=== PATIENT | female | born 1950 | race Caucasian/White ===

== ENCOUNTER 2018-07-09 05:39 | Outpatient (CLI) | payer MEDICARE, OTHER ==
[~2018-07-09] VITALS: Ht 170.2 cm; Wt 103.4 kg
[~2018-07-09 05:39] MED LIST: ALPR0.25 PO; GEMF600T3 PO; HYDR-1231 PO; HYDR-3062 PO; [UNRECOGNIZED DRUG - CODE] PO
[2018-07-09] MEDS ORDERED: SERT25TA5 PO (10:58)
[2018-07-09] MEDS ORDERED: GEMF600T4 PO (10:58)
[2018-07-09] MEDS ORDERED: CHOL500050 PO (10:58)
[2018-07-09] MEDS ORDERED: HYDR-3816 PO (10:58)
== END 2018-07-09 11:07 | disposition home or self-care (01) ==
LOC: PREOP 05:39
PROVIDERS: ATTEND Specialist
DX: Z01.818 Encounter for other preprocedural examination (principal)

== ENCOUNTER 2018-07-13 07:34 | Day surgery (SDC) | payer MEDICARE, OTHER ==
[~2018-07-13] VITALS: Ht 170.2 cm; Wt 103.4 kg
[~2018-07-13 07:34] MED LIST changes: +CHOL500050 PO; +GEMF600T4 PO; +HYDR-3816 PO; +SERT25TA5 PO
[2018-07-13 07:41] VITALS: BP 144/64
[2018-07-13] MEDS ORDERED: POVIDONE (BETADINE) OPHTH SOLN 5% 30 ML OP ONE (07:45)
[2018-07-13] MEDS ORDERED: MOXIFLOXACIN OPHTH SOLN 5 MG/ML 0.3 ML SYRINGE OP ONE (07:45)
[2018-07-13] MEDS ORDERED: LIDOCAINE PF 1% 2 ML AMP IR PRN (07:45)
[2018-07-13] MEDS ORDERED: TIMOLOL MALEATE 0.5% 5 ML (TIMOPTIC) BTL OU PRN (07:45)
[2018-07-13] MEDS: TETRACAINE 0.5% OPHTH SOLN 4 ML BTL (SINGLE DOSE ONLY) OU PRN ×4 (07:53→08:23)
[2018-07-13] MEDS: CYCLOPENTOLATE 1% (CYCLOGYL) 2 ML DROPS OP SCH ×3 (08:02→08:24)
[2018-07-13] MEDS: PHENYLEPHRINE 10% OPHTH (NEO-SYN) 5 ML BTL OU SCH ×3 (08:02→08:24)
[2018-07-13] MEDS ORDERED: MIDAZOLAM 2 MG/2 ML (VERSED) VIAL ONE (08:12)
--- NOTE | 2018-07-13 08:35 | Ophthalmologist Pre-Op Note ---
Pre-Operative Progress Note H&P Reviewed The H&P was reviewed, patient examined and no changes noted. Date H&P Reviewed: Jul 13, 2018 Time H&P Reviewed: 08:35 Pre-Op Dx Cataract, Left Eye GHASSAN REILLY MD Jul 13, 2018 08:35
--- NOTE | 2018-07-13 08:58 | Ophthalmology Operative Report ---
Cataract removal/placement IOL PREOPERATIVE DIAGNOSIS: Cataract Left Eye POSTOPERATIVE DIAGNOSIS: Cataract Left Eye PROCEDURE: Cataract removal and placement of posterior chamber implant, left eye SURGEON: Angus Reilly ANESTHESIA: Topical with sedation COMPLICATIONS: None ESTIMATED BLOOD LOSS: Minimal DESCRIPTION OF PROCEDURE: After proper informed consent was obtained, the patient, a 67 female, was taken to the Operating Room and the left eye was anesthetized with tetracaine. The left eye was then prepped and draped in the usual manner. A wire lid speculum was placed. A paracentesis was made at the left hand position. Preservative free lidocaine was injected into the anterior chamber followed by viscoelastic. A clear corneal incision was made in the temporal position. A capsulorrhexis was preformed and the central nuclear and cortical material were removed. The posterior capsule was polished and an Boo 14.0 AU00T0 was placed into the capsular bag. The residual viscoelastic was aspirated and balanced saline solution was injected into the anterior chamber. Moxifloxacin was injected into the anterior chamber. The wound was checked and found to be water tight. The patient tolerated the procedure well without complications. ANGUS REILLY MD Jul 13, 2018 08:58
[2018-07-13] MEDS ORDERED: acetaZOLAMIDE ER 500 MG CAP (DIAMOX SEQUELS) PO ONE (09:00)
[2018-07-13 09:04] VITALS: BP 130/73
--- NOTE | 2018-07-13 11:13 | Anesthesia-General Post-Op ---
MAC Patient Condition Mental Status/LOC: Same as Preop Cardiovascular: Satisfactory Nausea/Vomiting: Absent Respiratory: Satisfactory Pain: Controlled Complications: Absent Post Op Complications Complications None Follow Up Care/Instructions Patient Instructions None needed. Anesthesiology Discharge Order Discharge Order Patient is doing well, no complaints, stable vital signs, no apparent adverse anesthesia problems. No complications reported per nursing. ALECIA LINK CRNA Jul 13, 2018 11:13
== END 2018-07-13 09:04 | disposition home or self-care (01) ==
LOC: SDC 07:34
PROVIDERS: ATTEND Specialist
DX: H25.12 Age-related nuclear cataract, left eye (principal); F32.9 Major depressive disorder, single episode, unspecified; Z79.899 Other long term (current) drug therapy

== ENCOUNTER 2018-07-24 05:48 | Outpatient (CLI) | payer MEDICARE, OTHER ==
[~2018-07-24] VITALS: Ht 170.2 cm; Wt 103.4 kg
== END 2018-07-24 11:03 | disposition home or self-care (01) ==
LOC: PREOP 05:48
PROVIDERS: ATTEND Specialist
DX: Z01.818 Encounter for other preprocedural examination (principal)

== ENCOUNTER 2018-07-27 07:23 | Day surgery (SDC) | payer MEDICARE, OTHER ==
[~2018-07-27] VITALS: Ht 170.2 cm; Wt 103.4 kg
[~2018-07-27 07:23] MED LIST changes: -GEMF600T4 PO; +GEMF600T8 PO
[2018-07-27] MEDS ORDERED: MOXIFLOXACIN OPHTH SOLN 5 MG/ML 0.3 ML SYRINGE OP ONE (07:30)
[2018-07-27] MEDS ORDERED: POVIDONE (BETADINE) OPHTH SOLN 5% 30 ML OP ONE (07:30)
[2018-07-27] MEDS ORDERED: TIMOLOL MALEATE 0.5% 5 ML (TIMOPTIC) BTL OU PRN (07:30)
[2018-07-27] MEDS ORDERED: LIDOCAINE PF 1% 2 ML AMP IR PRN (07:30)
[2018-07-27 07:34] VITALS: BP 136/68
[2018-07-27] MEDS: TETRACAINE 0.5% OPHTH SOLN 4 ML BTL (SINGLE DOSE ONLY) OU PRN ×4 (07:37→08:12)
[2018-07-27] MEDS: CYCLOPENTOLATE 1% (CYCLOGYL) 2 ML DROPS OP SCH ×3 (07:47→08:12)
[2018-07-27] MEDS: PHENYLEPHRINE 10% OPHTH (NEO-SYN) 5 ML BTL OU SCH ×3 (07:47→08:12)
[2018-07-27] MEDS ORDERED: MIDAZOLAM 2 MG/2 ML (VERSED) VIAL ONE (08:13)
--- NOTE | 2018-07-27 08:26 | Ophthalmologist Pre-Op Note ---
Pre-Operative Progress Note H&P Reviewed The H&P was reviewed, patient examined and no changes noted. Date H&P Reviewed: Jul 27, 2018 Time H&P Reviewed: 08:25 Pre-Op Dx Cataract, Right Eye GHASSAN REILLY MD Jul 27, 2018 08:26
--- NOTE | 2018-07-27 08:48 | Ophthalmology Operative Report ---
Cataract removal/placement IOL PREOPERATIVE DIAGNOSIS: Cataract Right Eye POSTOPERATIVE DIAGNOSIS: Cataract Right Eye PROCEDURE: Cataract removal and placement of posterior chamber implant, right eye SURGEON: Angus Reilly ANESTHESIA: Topical with sedation COMPLICATIONS: None ESTIMATED BLOOD LOSS: Minimal DESCRIPTION OF PROCEDURE: After proper informed consent was obtained, the patient, a 67 female, was taken to the Operating Room and the right eye was anesthetized with tetracaine. The right eye was then prepped and draped in the usual manner. A wire lid speculum was placed. A paracentesis was made at the left hand position. Preservative free lidocaine was injected into the anterior chamber followed by viscoelastic. A clear corneal incision was made in the temporal position. A capsulorrhexis was preformed and the central nuclear and cortical material were removed. The posterior capsule was polished and Boo AU00T0 13.0 IOL was placed into the capsular bag. The residual viscoelastic was aspirated and balanced saline solution was injected into the anterior chamber. Moxifloxacin was injected into the anterior chamber. The wound was checked and found to be water tight. The patient tolerated the procedure well without complications. ANGUS REILLY MD Jul 27, 2018 08:48
[2018-07-27 08:53] VITALS: BP 137/75
[2018-07-27] MEDS ORDERED: acetaZOLAMIDE ER 500 MG CAP (DIAMOX SEQUELS) PO ONE (09:00)
--- NOTE | 2018-07-27 12:39 | Anesthesia-General Post-Op ---
MAC Patient Condition Mental Status/LOC: Same as Preop Cardiovascular: Satisfactory Nausea/Vomiting: Absent Respiratory: Satisfactory Pain: Controlled Complications: Absent Post Op Complications Complications None Follow Up Care/Instructions Patient Instructions None needed. Anesthesiology Discharge Order Discharge Order Patient is doing well, no complaints, stable vital signs, no apparent adverse anesthesia problems. No complications reported per nursing. GIANCARLO JOLLY CRNA Jul 27, 2018 12:39
== END 2018-07-27 08:56 | disposition home or self-care (01) ==
LOC: SDC 07:23
PROVIDERS: ATTEND Specialist
DX: H25.11 Age-related nuclear cataract, right eye (principal); F32.9 Major depressive disorder, single episode, unspecified; Z79.899 Other long term (current) drug therapy

== ENCOUNTER → 2018-08-27 | Outpatient (RCR) | payer MEDICARE, OTHER | END | disposition home or self-care (01) | PROVIDERS: ATTEND Orthopaedic Surgery | DX: Z47.89 Encounter for other orthopedic aftercare (principal); M25.511 Pain in right shoulder ==

== ENCOUNTER 2018-11-26 08:50 | Outpatient (RCR) | payer MEDICARE, OTHER | END 2018-11-27 | disposition home or self-care (01) | PROVIDERS: ATTEND Orthopaedic Surgery | DX: Z47.89 Encounter for other orthopedic aftercare (principal); M25.511 Pain in right shoulder ==

== ENCOUNTER 2018-12-06 13:30 | Outpatient (RCR) | payer MEDICARE, OTHER | END 2018-12-07 13:47 | disposition home or self-care (01) | PROVIDERS: ATTEND Orthopaedic Surgery | DX: Z47.89 Encounter for other orthopedic aftercare (principal); M25.511 Pain in right shoulder ==

== ENCOUNTER → 2019-02-19 | Outpatient (CLI) | payer MEDICARE, OTHER ==
--- NOTE | 2019-02-19 12:54 | Diagnostic Imaging Report ---
PROCEDURE: US Thyroid. TECHNIQUE: Multiple real-time grayscale images were obtained of the thyroid in various projections. INDICATION: Enlarged thyroid gland. COMPARISON: None available. FINDINGS: The right lobe of thyroid gland is slightly small measuring 3.9 x 1.4 x 1.3 cm. It maintains a homogeneous echotexture without discrete nodule. The left lobe of thyroid gland is mildly small measuring 3.1 x 1.2 x 0.8 cm. It maintains a homogeneous echotexture without discrete nodule. Isthmus is unremarkable. IMPRESSION: Mildly small thyroid gland. Otherwise, unremarkable examination without discrete nodule. Dictated by: Dictated on workstation # [id number]
== END ==
LOC: RAD 10:29
PROVIDERS: ATTEND Nurse Practitioner Family
DX: Z12.31 Encounter for screening mammogram for malignant neoplasm of breast (principal); E04.9 Nontoxic goiter, unspecified
CPT/HCPCS: 76536; 77067

== ENCOUNTER → 2019-05-14 | Outpatient (CLI) | payer MEDICARE, OTHER ==
--- NOTE | 2019-05-14 13:43 | Diagnostic Imaging Report ---
INDICATION: Knee pain. Three views were obtained. FINDINGS: There is three-compartment osteoarthritic change. There is no fracture or dislocation. Soft tissues are unremarkable. IMPRESSION: Three-compartment osteoarthritic change. Dictated by: Dictated on workstation # [id number]
== END ==
LOC: RAD 13:21
PROVIDERS: ATTEND Nurse Practitioner Family
DX: M17.11 Unilateral primary osteoarthritis, right knee (principal)
CPT/HCPCS: 73562

== ENCOUNTER → 2019-05-20 | Outpatient (CLI) | payer MEDICARE, OTHER ==
--- NOTE | 2019-05-20 13:41 | Diagnostic Imaging Report ---
INDICATION: History of kidney stones. COMPARISON: None. FINDINGS: Two supine radiographic views of the abdomen were obtained. Small bowel loops are nondistended. There is small extraosseous calcification within the left upper abdominal quadrant that measures approximately 4 mm. It is unclear if this is within the inferior pole of the left kidney or related to superimposed debris within the colon. No unexpected radiopaque foreign bodies are identified. There is no large collection of free intraperitoneal air. Included portions of the lung bases are clear. Osseous structures show no acute abnormalities. IMPRESSION: 1. Small calculus within the left upper abdominal quadrant, which again could be on the basis of nephrolithiasis versus debris within the colon projecting over the left kidney. 2. Nonobstructive small bowel gas pattern. Dictated by: Dictated on workstation # [id number]
== END ==
LOC: RAD 12:48
PROVIDERS: ATTEND Urology
DX: N20.1 Calculus of ureter (principal); R19.8 Other specified symptoms and signs involving the digestive system and abdomen; Z87.442 Personal history of urinary calculi
CPT/HCPCS: 74018

== ENCOUNTER → 2019-05-23 | Outpatient (CLI) | payer MEDICARE, OTHER ==
--- NOTE | 2019-05-23 13:16 | Diagnostic Imaging Report ---
PROCEDURE: CT abdomen and pelvis without contrast. TECHNIQUE: Multiple contiguous axial images were obtained through the abdomen and pelvis without the use of intravenous contrast. Auto Exposure Controls were utilized during the CT exam to meet ALARA standards for radiation dose reduction. INDICATION: Left-sided pain. Patient reportedly has a left ureteral stone. FINDINGS: Lung bases are clear apart from minimal linear density in the left base consistent with atelectasis. There is a calcified granuloma in the medial right lower lobe. No discrete liver mass is identified. There are small stones layering within the dependent portion of the gallbladder. No biliary ductal dilatation is identified. The pancreas is unremarkable. The spleen is unremarkable. No adrenal mass is detected. The right kidney is unremarkable. The left kidney does contain a tiny approximately 2 mm nonobstructing calculus in the lower pole. No ureteral calculi are identified. There is no hydronephrosis. Urinary bladder is decompressed but no definite bladder calculi are detected. The aorta does show some atherosclerotic calcifications but is non-aneurysmal. No central, retroperitoneal, or mesenteric lymphadenopathy is identified. The large and small bowel loops are normal caliber. There is diverticulosis throughout the sigmoid colon but no evidence of acute diverticulitis. No definite iliac or inguinal lymphadenopathy is detected. No free fluid or fluid collection is seen. Bony structures are nonacute. There is multilevel degenerative disc disease. IMPRESSION: 1. Cholelithiasis. 2. Nonobstructing left renal calculus. 3. Uncomplicated sigmoid diverticulosis. 4. No acute feature in the abdomen or pelvis is identified. Dictated by: Dictated on workstation # [id number]
== END ==
LOC: RAD 12:32
PROVIDERS: ATTEND Urology
DX: N20.2 Calculus of kidney with calculus of ureter (principal); K80.20 Calculus of gallbladder without cholecystitis without obstruction; K57.30 Diverticulosis of large intestine without perforation or abscess without bleeding
CPT/HCPCS: 74176

== ENCOUNTER → 2019-05-24 | Outpatient (CLI) | payer MEDICARE, OTHER ==
--- NOTE | 2019-05-24 12:50 | Diagnostic Imaging Report ---
PROCEDURE: MRI right joint lower extremity without contrast. TECHNIQUE: Multiplanar, multisequence non contrast-enhanced MRI of the right lower extremity was accomplished. INDICATION: Pain in the right knee after feeling a pop. COMPARISON: Radiographs from 05/14/2019. FINDINGS: No acute fracture is seen in the right knee. Alignment appears normal. There are moderate-sized marginal osteophytes in all three compartments. There is a small right knee joint effusion. The articular cartilage in the patellofemoral compartment demonstrates moderate thinning and surface irregularity. The articular cartilage in the medial compartment demonstrates moderate thinning and surface irregularity, with areas of near full-thickness cartilage loss. The articular cartilage in the lateral compartment demonstrates no full-thickness defects. There is a complex tear of the medial meniscus with horizontal and radial components at the posterior horn extending to the body. The lateral meniscus appears intact. The anterior and posterior cruciate ligaments are intact. The medial collateral ligament is bowed due to the partially extruded meniscus, but otherwise appears intact. The lateral collateral ligamentous complex is intact. The extensor mechanism is intact. The medial and lateral retinacula are intact. Soft tissues about the knee are otherwise unremarkable. IMPRESSION: 1. Complex tear of the medial meniscus in the right knee. 2. Tricompartmental degenerative change and cartilage loss, most notable at the medial compartment. 3. Small right knee joint effusion. Dictated by: Dictated on workstation # [id number]
== END ==
LOC: RAD 09:56
PROVIDERS: ATTEND Nurse Practitioner Family
DX: S83.231A Complex tear of medial meniscus, current injury, right knee, initial encounter (principal); M17.11 Unilateral primary osteoarthritis, right knee; M25.461 Effusion, right knee
CPT/HCPCS: 73721

== ENCOUNTER 2019-06-04 09:49 | Outpatient (RCR) | payer MEDICARE, OTHER | END 2019-06-12 | disposition home or self-care (01) | PROVIDERS: ATTEND Nurse Practitioner | DX: M25.511 Pain in right shoulder (principal); Z98.890 Other specified postprocedural states ==

== ENCOUNTER → 2021-01-08 | Outpatient (CLI) | payer MEDICARE, OTHER ==
[~2021-01-08] MED LIST changes: -GEMF600T8 PO; +GEMF600T88 PO; +HYDR-34 PO; -HYDR-3816 PO; +SERT-412 PO; -SERT25TA5 PO
--- NOTE | 2021-01-08 10:44 | Diagnostic Imaging Report ---
PROCEDURE: US Gallbladder. TECHNIQUE: Multiple real-time grayscale images were obtained over the right upper quadrant in various projections. INDICATION: Right upper quadrant abdominal pain COMPARISON: None FINDINGS: There is fatty infiltration throughout the liver. No mass or intrahepatic biliary duct dilatation is seen. Common bile duct is nonvisualized as is the pancreas. Portal venous flow is normal. The gallbladder wall appears normal. Cholelithiasis is present without cholecystitis. The IVC, aorta and right kidney are normal. There is no ascites. IMPRESSION: 1. Cholelithiasis without cholecystitis 2. Fatty liver 3. No ascites Dictated by: Dictated on workstation # [id number]
== END ==
LOC: RAD 09:45
PROVIDERS: ATTEND Nurse Practitioner Family
DX: K80.20 Calculus of gallbladder without cholecystitis without obstruction (principal); K76.0 Fatty (change of) liver, not elsewhere classified
CPT/HCPCS: 76705

== ENCOUNTER → 2021-10-07 | Outpatient (CLI) | payer MEDICARE, OTHER ==
[~2021-10-07] VITALS: Ht 170.2 cm; Wt 111.8 kg
[~2021-10-07] MED LIST changes: +PANT40TA52 PO
== END | disposition home or self-care (01) ==
LOC: PREOP 08:09
PROVIDERS: ATTEND Specialist
DX: Z01.818 Encounter for other preprocedural examination (principal)

== ENCOUNTER → 2021-12-09 | Outpatient (CLI) | payer MEDICARE, OTHER ==
--- NOTE | 2021-12-09 09:51 | Diagnostic Imaging Report ---
PROCEDURE: US Gallbladder. TECHNIQUE: Multiple real-time grayscale images were obtained over the right upper quadrant in various projections. INDICATION: Right upper quadrant pain. Liver is upper limits of normal in size at 18 cm. There is some generalized increased echogenicity throughout the liver consistent with hepatic steatosis. No discrete liver mass is identified. Portal vein is patent and shows normal direction of flow. Gallbladder is without stones or sludge. No wall thickening or biliary duct dilatation is seen. Visualized pancreas is unremarkable although pancreatic tail is obscured by bowel gas. Aorta is nonaneurysmal. IVC is patent. Right kidney is without calculi or hydronephrosis. There is no ascites. IMPRESSION: 1. Hepatic steatosis. 2. No evidence of cholelithiasis or acute cholecystitis. Dictated by: Dictated on workstation # [id number]
== END ==
LOC: RAD 08:30
PROVIDERS: ATTEND Nurse Practitioner Family
DX: K80.20 Calculus of gallbladder without cholecystitis without obstruction (principal); K76.0 Fatty (change of) liver, not elsewhere classified
CPT/HCPCS: 76705

== ENCOUNTER 2022-02-02 10:27 | Outpatient (RCR) | payer MEDICARE, OTHER | END 2022-02-06 | disposition home or self-care (01) | PROVIDERS: ATTEND Physician Assistant | DX: M25.511 Pain in right shoulder (principal); Z96.611 Presence of right artificial shoulder joint ==

== ENCOUNTER → 2022-02-10 | Outpatient (CLI) | payer MEDICARE, OTHER ==
[~2022-02-10] MED LIST changes: +CATHETER FLUSH 10 ML SYR IVP PRN
--- NOTE | 2022-02-10 13:46 | Diagnostic Imaging Report ---
INDICATION: Right upper quadrant pain. EXAMINATION: Hepatobiliary scan from 02/10/2022. FINDINGS: After uneventful administration of 5.1 mCi of technetium Choletec intravenously subsequent imaging is performed with prompt homogeneous uptake seen throughout the liver. The gallbladder and small bowel seen within 60 minutes. Ensure administered orally at 60 minutes with continued imaging performed. Ejection fraction calculated at 28.4% IMPRESSION: 1. No obstructive process. 2. Low ejection fraction suggestive of chronic cholecystitis versus gallbladder dyskinesia. Correlate with patient's symptoms. Dictated by: Dictated on workstation # [id number]
== END ==
LOC: CARD 09:28
PROVIDERS: ATTEND Nurse Practitioner Family
DX: R10.11 Right upper quadrant pain (principal)
CPT/HCPCS: 78227; A9537

== ENCOUNTER 2022-03-08 10:49 | Outpatient (RCR) | payer MEDICARE, OTHER ==
[~2022-03-08 10:49] MED LIST changes: -CATHETER FLUSH 10 ML SYR IVP PRN
== END 2022-03-09 | disposition home or self-care (01) ==
PROVIDERS: ATTEND Physician Assistant
DX: M25.511 Pain in right shoulder (principal); Z96.611 Presence of right artificial shoulder joint

== ENCOUNTER 2022-03-31 10:44 | Outpatient (RCR) | payer MEDICARE, OTHER | END 2022-04-08 | disposition home or self-care (01) | PROVIDERS: ATTEND Physician Assistant | DX: M25.511 Pain in right shoulder (principal); Z96.611 Presence of right artificial shoulder joint ==

== ENCOUNTER 2022-04-11 09:42 | Emergency (ER) | payer MEDICARE, OTHER ==
[~2022-04-11] VITALS: Ht 170 cm; Wt 103.3 kg
[2022-04-11 09:48] VITALS: BP_DIAS 72
[2022-04-11 10:09] LABS: BASOPHILS # (AUTO) 0.1 10^3/uL (0.0-0.1); BASOPHILS % (AUTO) 1 % (0-10); EOSINOPHILS # (AUTO) 0.2 10^3/uL (0.0-0.3); EOSINOPHILS % (AUTO) 2 % (0-10); HEMATOCRIT 46 % (35-52); LYMPHOCYTES # (AUTO) 2.8 10^3/uL (1.0-4.0); LYMPHOCYTES % (AUTO) 28 % (12-44); MEAN CORPUSCULAR HEMOGLOBIN 29 pg (25-34); MEAN CORPUSCULAR HGB CONC 33 g/dL (32-36); MEAN CORPUSCULAR VOLUME 89 fL (80-99); MEAN PLATELET VOLUME 10.8 fL (9.0-12.2); MONOCYTES # (AUTO) 0.6 10^3/uL (0.0-1.0); MONOCYTES % (AUTO) 6 % (0-12); NEUTROPHILS # (AUTO) 6.3 10^3/uL (1.8-7.8); NEUTROPHILS % (AUTO) 64 % (42-75); PLATELET COUNT 278 10^3/uL (130-400)
--- NOTE | 2022-04-11 10:11 | ED Abdominal Pain ---
General Chief Complaint: Abdominal/GI Problems Stated Complaint: ABD PAIN Nursing Triage Note: pt presents to ed via pov from home with complaints of r upper abdominal pain starting around 0920 after voiding. pt reports she has gallbladder sx on 04/06/22 Source of Information: Patient Exam Limitations: No Limitations History of Present Illness Date Seen by Provider: Apr 11, 2022 Time Seen by Provider: 09:46 Initial Comments Patient to the ER by private conveyance with her daughter and chief complaint of right upper quadrant pain severely worsening this morning about an hour prior to arrival. She took a tablet of hydrocodone 5 and did not feel like it helped at all. She is not really having any nausea. She had a cholecystectomy on Monday by Dr. Crockett at [facility], 5 days ago. She has a history of hysterectomy. She is passing gas and bowel movements normally. She has been eating and drinking normally. She denies dysuria or diarrhea. She states that everything was getting better up until this morning. She was even weaning off of the pain medication. She says the last time she had up for that was at 2300 yesterday. Allergies and Home Medications Allergies Coded Allergies: eucalyptus (Verified Allergy, Intermediate, Shortness of Breath, 10/15/21) hazelnut (Verified Allergy, Intermediate, Itching, 10/15/21) latex (Verified Allergy, Unknown, RASH, 10/15/21) Penicillins (Verified Adverse Reaction, Intermediate, 10/15/21) nickel (Verified Adverse Reaction, Intermediate, Itching, 10/15/21) carbamazepine (Verified Adverse Reaction, Unknown, 10/15/21) codeine (Verified Adverse Reaction, Unknown, 10/15/21) cyclobenzaprine (Verified Adverse Reaction, Unknown, 10/15/21) doxycycline (Verified Adverse Reaction, Unknown, 10/15/21) erythromycin base (Verified Adverse Reaction, Unknown, 10/15/21) flurbiprofen (Verified Adverse Reaction, Unknown, 10/15/21) lincomycin (Verified Adverse Reaction, Unknown, 10/15/21) phenytoin (Verified Adverse Reaction, Unknown, 10/15/21) Uncoded Allergies: BEE STINGS (Adverse Reaction, Unknown, 07/09/18) Patient Home Medication List Home Medication List Reviewed: Yes Cholecalciferol (Vitamin D3) (Vitamin D) 5,000 Unit Capsule, 5,000 UNIT PO DAILY, (Reported) Entered as Reported by: DELON GARCIA on 07/09/18 1058 Gemfibrozil (Gemfibrozil) 600 Mg Tablet, 600 MG PO BID, (Reported) Entered as Reported by: DELON GARCIA on 07/09/18 1058 Pantoprazole Sodium (Pantoprazole Sodium) 40 Mg Tablet.dr, 40 MG PO DAILY, (R eported) Entered as Reported by: VANDA MOORE on 10/07/21 1333 Sertraline HCl (Sertraline HCl) 25 Mg Tablet, 25 MG PO DAILY, (Reported) Entered as Reported by: DELON GARCIA on 07/09/18 1058 Review of Systems Review of Systems Constitutional: No chills, No fever EENTM: No Blurred Vision, No Double Vision Respiratory: Denies Cough, Denies Shortness of Air Cardiovascular: Denies Chest Pain, Denies Lightheadedness Gastrointestinal: See HPI, Abdominal Pain; Denies Constipated, Denies Diarrhea, Denies Nausea, Denies Poor Fluid Intake Genitourinary: Denies Burning, Denies Discharge All Other Systems Reviewed Negative Unless Noted: Yes Past Whtjixi-Ajkbsn-Lrzsem Hx Patient Social History Tobacco Use?: No Substance use?: No Alcohol Use?: No Pt feels they are or have been: No Immunizations Up To Date First/Initial COVID19 Vaccinat: yes Second COVID19 Vaccination Fabio: yes Past Medical History Surgery/Hospitalization HX: pmh: seasonal allergies, depression, gerd PIPE WELDER History: Menopausal Kidney Stones Arthritis Physical Exam Vital Signs Vital Signs - First Documented 04/11/22 09:48 Temp 36.5 Pulse 77 Resp 18 B/P (MAP) 203/72 (115) Pulse Ox 95 Capillary Refill : Less Than 3 Seconds Height/Weight/BMI Height: 5'7.00" Weight: 228lbs. 0.0oz. 103.927730fi; 35.00 BMI Method:Stated General Appearance: WD/WN, mild distress HEENT: PERRL/EOMI, pharynx normal Neck: full range of motion, normal inspection Respiratory: lungs clear, normal breath sounds, no respiratory distress, no accessory muscle use Cardiovascular: normal peripheral pulses, regular rate, rhythm Peripheral Pulses: 2+ Radial Pulses (R), 2+ Radial Pulses (L) Gastrointestinal: normal bowel sounds (Quiescent bowel sounds), soft, tenderness (Right upper quadrant and left upper quadrant tenderness to palpation. Negative for McBurney's point tenderness or Rovsing sign.) Extremities: normal range of motion, normal capillary refill Neurologic/Psychiatric: alert, normal mood/affect, oriented x 3 Skin: normal color, warm/dry Progress/Results/Core Measures Results/Orders Lab Results Laboratory Tests Test 04/11/22 10:05 04/11/22 10:33 04/11/22 11:30 Range/Units White Blood Count 10.0 4.3-11.0 10^3/uL Red Blood Count 5.14 H 3.80-5.11 10^6/uL Hemoglobin 15.0 11.5-16.0 g/dL Hematocrit 46 35-52 % Mean Corpuscular Volume 89 80-99 fL Mean Corpuscular Hemoglobin 29 25-34 pg Mean Corpuscular Hemoglobin Concent 33 32-36 g/dL Red Cell Distribution Width 14.1 10.0-14.5 % Platelet Count 278 130-400 10^3/uL Mean Platelet Volume 10.8 9.0-12.2 fL Immature Granulocyte % (Auto) 0 % Neutrophils (%) (Auto) 64 42-75 % Lymphocytes (%) (Auto) 28 12-44 % Monocytes (%) (Auto) 6 0-12 % Eosinophils (%) (Auto) 2 0-10 % Basophils (%) (Auto) 1 0-10 % Neutrophils # (Auto) 6.3 1.8-7.8 10^3/uL Lymphocytes # (Auto) 2.8 1.0-4.0 10^3/uL Monocytes # (Auto) 0.6 0.0-1.0 10^3/uL Eosinophils # (Auto) 0.2 0.0-0.3 10^3/uL Basophils # (Auto) 0.1 0.0-0.1 10^3/uL Immature Granulocyte # (Auto) 0.0 0.0-0.1 10^3/uL Sodium Level 138 135-145 MMOL/L Potassium Level 3.3 L 3.6-5.0 MMOL/L Chloride Level 103 98-107 MMOL/L Carbon Dioxide Level 25 21-32 MMOL/L Anion Gap 10 5-14 MMOL/L Blood Urea Nitrogen 12 7-18 MG/DL Creatinine 0.75 0.60-1.30 MG/DL Estimat Glomerular Filtration Rate 85 BUN/Creatinine Ratio 16 Glucose Level 122 H 70-105 MG/DL Calcium Level 9.2 8.5-10.1 MG/DL Corrected Calcium 9.1 8.5-10.1 MG/DL Total Bilirubin 0.8 0.1-1.0 MG/DL Aspartate Amino Transf (AST/SGOT) 42 H 5-34 U/L Alanine Aminotransferase (ALT/SGPT) 38 0-55 U/L Alkaline Phosphatase 109 40-136 U/L C-Reactive Protein High Sensitivity 5.42 H 0.00-0.50 MG/DL Total Protein 7.3 6.4-8.2 GM/DL Albumin 4.1 3.2-4.5 GM/DL Lipase 18 8-78 U/L Urine Color YELLOW Urine Clarity CLEAR Urine pH 7.0 5-9 Urine Specific [place] 1.010 L 1.016-1.022 Urine Protein NEGATIVE NEGATIVE Urine Glucose (UA) NEGATIVE NEGATIVE Urine Ketones NEGATIVE NEGATIVE Urine Nitrite NEGATIVE NEGATIVE Urine Bilirubin NEGATIVE NEGATIVE Urine Urobilinogen 0.2 < = 1.0 MG/DL Urine Leukocyte Esterase NEGATIVE NEGATIVE Urine RBC (Auto) NEGATIVE NEGATIVE Urine RBC NONE /HPF Urine WBC RARE /HPF Urine Crystals NONE /LPF Urine Bacteria NEGATIVE /HPF Urine Casts NONE /LPF Urine Mucus NEGATIVE /LPF Urine Culture Indicated NO My Orders Orders - RICHARD JOHNSON Cbc With Automated Diff (04/11/22 09:56) Comprehensive Metabolic Panel (04/11/22 09:56) Lipase (04/11/22 09:56) Ua Culture If Indicated (04/11/22 09:56) Fentanyl Inj (Sublimaze Injection) (04/11/22 10:15) Ed Iv/Invasive Line Start (04/11/22 10:05) Ns Iv 1000 Ml (Sodium Chloride 0.9%) (04/11/22 10:15) Ct Abdomen/Pelvis W (04/11/22 10:05) Pantoprazole Injection (Protonix Injecti (04/11/22 10:15) Hs C Reactive Protein (04/11/22 10:05) Iohexol Injection (Omnipaque 350 Mg/Ml 1 (04/11/22 11:00) Received Contrast (Hold Metformin- Contr (04/11/22 11:00) Ns (Ivpb) (Sodium Chloride 0.9% Ivpb Bag (04/11/22 11:00) Sodium Chloride Flush (Catheter Flush Sy (04/11/22 11:00) Medications Given in ED Current Medications Medications Dose Ordered Sig/Jennifer Route Start Time Stop Time Status Last Admin Dose Admin Fentanyl Citrate 50 mcg ONCE ONCE IVP 04/11/22 10:15 04/11/22 10:16 DC 04/11/22 10:27 50 MCG Iohexol 100 ml ONCE ONCE IV 04/11/22 11:00 04/11/22 11:05 DC 04/11/22 11:06 80 ML Pantoprazole 40 mg ONCE ONCE IV 04/11/22 10:15 04/11/22 10:16 DC 04/11/22 10:27 40 MG Sodium Chloride 10 ml NEEDED PRN IV 04/11/22 11:00 04/11/22 11:06 10 ML Sodium Chloride 100 ml ONCE ONCE IV 04/11/22 11:00 04/11/22 11:05 DC 04/11/22 11:06 80 ML Vital Signs/I&O 04/11/22 09:48 Temp 36.5 Pulse 77 Resp 18 B/P (MAP) 203/72 (115) Pulse Ox 95 Blood Pressure Mean: 115 Progress Progress Note #1: Time: 10:10 Progress Note 50 mcg of IV fentanyl for her pain. A liter of fluids had a CT with IV contrast. Labs including a lipase, urinalysis. Differential includes biliary leak, gastritis, urinary tract infection, other surgical complications etc. Progress Note #2: Time: 11:45 Progress Note Patient's pain is still under control. She still not having any nausea. We discussed the case with Dr. Crockett the general surgeon and he is okay to follow her up in the clinic tomorrow morning. We will have the daughter call for an appointment. We will make sure she has appropriate pain medicines and nausea medicines and return precautions. The patient is okay with this plan. Her vital signs are still aseptic. She has had no material deterioration during her ER stay. Diagnostic Imaging Diagonstic Imaging: CT Plain Films/CT/US/NM/MRI: abdomen, pelvis Comments NAME: [facility] REC#: [id number] PT STATUS: REG ER : 1950 PHYSICIAN: RICHARD JOHNSON MD ADMIT DATE: 04/11/22/ER Draft Date of Exam:04/11/22 CT ABDOMEN/PELVIS W CT ABDOMEN/PELVIS W TECHNIQUE: Multiple contiguous axial images were obtained through the abdomen and pelvis after administration of intravenous contrast. All CT scans use one or more of the following dose optimizing techniques: automated exposure control, MA and/or KvP adjustment based on patient size and exam type or iterative reconstruction. INDICATION: Abdominal pain. Recent cholecystectomy. COMPARISON: None available. FINDINGS: Lower chest: Linear atelectasis within the left lung base. There are few calcified granulomas within the medial aspect of the right lower lobe. Peritoneum: Trace nonloculated fluid in the right paracolic gutter and gallbladder fossa. No loculated fluid collection that would indicate abscess or biloma. Liver and biliary system: Diffuse hypoattenuation of the liver is likely due to steatosis. No focal hepatic lesion. The portal vein is patent. Cholecystectomy. Spleen and Pancreas: Spleen is normal. The pancreas enhances normally without mass lesion or peripancreatic inflammatory changes. Adrenals: Normal. tract: The kidneys enhance normally without suspicious mass or obstruction. Urinary bladder is distended without wall thickening. Hysterectomy. No adnexal mass. GI tract: Stomach is decompressed. No bowel obstruction. Descending and sigmoid colon diverticulosis without diverticulitis. Normal appendix. Vasculature and Lymph nodes: Normal caliber aorta. No abdominal or pelvic lymphadenopathy. Musculoskeletal: No concerning osseous lesion. IMPRESSION: 1. Status post cholecystectomy with a small amount of free fluid in the gallbladder fossa which is within expected limits for recent surgery. No loculated fluid collection to indicate biloma or abscess. 2. Normal appendix. 3. Colonic diverticulosis without diverticulitis. Dictated on workstation # [id number] Dict: 04/11/22 1128 Trans: 04/11/22 1138 [id number] Interpreted by: BIPIN KIM MD Electronically signed by: Reviewed: Reviewed by Me Departure Impression Primary Impression: Abdominal pain Qualified Codes: R10.11 - Right upper quadrant pain Additional Impression: Status post cholecystectomy Disposition: 01 HOME, SELF-CARE Condition: Stable Departure-Patient Inst. Decision time for Depature: 11:57 Referrals: ELIZA BOLANOS MD (PCP/Family) Primary Care Physician Patient Instructions: Cholecystectomy, Laparoscopic Surgery Add. Discharge Instructions: We could not find a dangerous explanation for your pain today. I suggest you treat the pain and follow-up with Dr. Crockett in the morning by calling for an appointment. Dr. Crockett's office is [phone]. Take 1 tablet of hydrocodone every 6 hours if you are having severe pain. If you are still having significant pain 30 minutes later then take a second tablet every 6 hours as needed. Ondansetron 1 tablet under the tongue every 6 hours as needed for nausea or vomiting. Stick to a liquid diet and avoid greasy spicy foods. Return to the ER promptly if you are having intractable vomiting, fever above 102.5, pain that is so severe that you cannot function despite pain medicines. All discharge instructions reviewed with patient and/or family. Voiced u nderstanding. Scripts Ondansetron (Ondansetron Odt) 4 Mg Tab.rapdis 4 MG PO Q6H PRN for NAUSEA/VOMITING, #8 TAB 0 Refills Prov: RICHARD JOHNSON 04/11/22 Hydrocodone/Acetaminophen (Hydrocodone-Acetamin 5-325 mg) 5 Mg-325 Mg Tablet 1-2 TAB PO Q6H PRN for PAIN-MODERATE (5-7), #12 TAB 0 Refills Prov: RICHARD JOHNSON 04/11/22 RICHARD JOHNSON Apr 11, 2022 10:11
[2022-04-11] MEDS ORDERED: fentaNYL INJ 100 MCG/2 ML AMP IVP ONE (10:15)
[2022-04-11] MEDS ORDERED: NS IV 1000 ML 1,000 ML IV SCH (10:15)
[2022-04-11] MEDS ORDERED: PANTOPRAZOLE 40 MG (PROTONIX) VIAL IV ONE (10:15)
[2022-04-11 10:48] LABS: ALBUMIN 4.1 GM/DL (3.2-4.5); POTASSIUM 3.3 MMOL/L (3.6-5.0)
[2022-04-11 10:49] LABS: CALCIUM 9.2 MG/DL (8.5-10.1)
[2022-04-11 10:50] LABS: TOTAL PROTEIN 7.3 GM/DL (6.4-8.2)
[2022-04-11 10:52] LABS: BILIRUBIN,TOTAL 0.8 MG/DL (0.1-1.0)
[2022-04-11 10:54] LABS: CREATININE SERUM 0.75 MG/DL (0.60-1.30)
[2022-04-11] MEDS ORDERED: HOLD METFORMIN - RECEIVED CONTRAST 20 ML VIAL IV SCH (11:00)
[2022-04-11] MEDS ORDERED: IOHEXOL 350 MG/ML 100 ML (OMNIPAQUE 350) VIAL IV ONE (11:00)
[2022-04-11] MEDS ORDERED: CATHETER FLUSH 10 ML SYR IV PRN (11:00)
[2022-04-11] MEDS ORDERED: NS 100 ML (IVPB) BAG IV ONE (11:00)
[2022-04-11 11:32] LABS: BILIRUBIN,URINE NEGATIVE (NEGATIVE); CLARITY,URINE CLEAR; COLOR,URINE YELLOW; GLUCOSE, URINE (UA) NEGATIVE (NEGATIVE); KETONES,URINE NEGATIVE (NEGATIVE); LEUKOCYTE ESTERASE ,URINE NEGATIVE (NEGATIVE); NITRITE,URINE NEGATIVE (NEGATIVE); PROTEIN,URINE NEGATIVE (NEGATIVE)
[2022-04-11 11:39] LABS: BACTERIA,URINE NEGATIVE /HPF; WBC,URINE RARE /HPF
--- NOTE | 2022-04-11 11:39 | Diagnostic Imaging Report ---
CT ABDOMEN/PELVIS W TECHNIQUE: Multiple contiguous axial images were obtained through the abdomen and pelvis after administration of intravenous contrast. All CT scans use one or more of the following dose optimizing techniques: automated exposure control, MA and/or KvP adjustment based on patient size and exam type or iterative reconstruction. INDICATION: Abdominal pain. Recent cholecystectomy. COMPARISON: None available. FINDINGS: Lower chest: Linear atelectasis within the left lung base. There are few calcified granulomas within the medial aspect of the right lower lobe. Peritoneum: Trace nonloculated fluid in the right paracolic gutter and gallbladder fossa. No loculated fluid collection that would indicate abscess or biloma. Liver and biliary system: Diffuse hypoattenuation of the liver is likely due to steatosis. No focal hepatic lesion. The portal vein is patent. Cholecystectomy. Spleen and Pancreas: Spleen is normal. The pancreas enhances normally without mass lesion or peripancreatic inflammatory changes. Adrenals: Normal. tract: The kidneys enhance normally without suspicious mass or obstruction. Urinary bladder is distended without wall thickening. Hysterectomy. No adnexal mass. GI tract: Stomach is decompressed. No bowel obstruction. Descending and sigmoid colon diverticulosis without diverticulitis. Normal appendix. Vasculature and Lymph nodes: Normal caliber aorta. No abdominal or pelvic lymphadenopathy. Musculoskeletal: No concerning osseous lesion. IMPRESSION: 1. Status post cholecystectomy with a small amount of free fluid in the gallbladder fossa which is within expected limits for recent surgery. No loculated fluid collection to indicate biloma or abscess. 2. Normal appendix. 3. Colonic diverticulosis without diverticulitis. Dictated by: Dictated on workstation # [id number]
[2022-04-11] MEDS ORDERED: ONDA4TAB11 PO (12:01)
[2022-04-11] MEDS ORDERED: ACHD5005 PO (12:01)
[2022-04-11 12:25] VITALS: BP_SYST 154
== END 2022-04-11 12:25 | disposition home or self-care (01) ==
LOC: EDUNIT# 09:42 → ER 09:43
DX: R10.11 Right upper quadrant pain (principal); R10.12 Left upper quadrant pain; Z90.49 Acquired absence of other specified parts of digestive tract; Z91.040 Latex allergy status; Z88.5 Allergy status to narcotic agent; Z90.710 Acquired absence of both cervix and uterus
CPT/HCPCS: 36415; 74177; 80053; 81000; 83690; 85025; 86141; 96374; 96375

== ENCOUNTER 2022-05-04 15:26 | Outpatient (RCR) | payer MEDICARE, OTHER ==
[~2022-05-04 15:26] MED LIST changes: +ACHD5005 PO; +ONDA4TAB11 PO
== END 2022-05-09 | disposition home or self-care (01) ==
PROVIDERS: ATTEND Physician Assistant
DX: M25.511 Pain in right shoulder (principal); Z96.611 Presence of right artificial shoulder joint

== ENCOUNTER 2022-05-25 07:00 | Outpatient (RCR) | payer MEDICARE, OTHER | END 2022-05-25 15:31 | disposition home or self-care (01) | PROVIDERS: ATTEND Physician Assistant | DX: M25.511 Pain in right shoulder (principal); Z96.611 Presence of right artificial shoulder joint ==

== ENCOUNTER 2022-08-09 14:50 | Outpatient (CLI) | payer MEDICARE, OTHER | END 2022-08-09 15:15 | LOC: SLEEP 14:50 | PROVIDERS: ATTEND Family Medicine | DX: G47.9 Sleep disorder, unspecified (principal) | CPT/HCPCS: G0399 ==

== ENCOUNTER 2022-08-24 05:35 | Outpatient (CLI) | payer MEDICARE, OTHER ==
[~2022-08-24] VITALS: Ht 170.2 cm; Wt 95.7 kg
[2022-08-24] MEDS ORDERED: TRAM50TA3 PO (15:31)
[2022-08-24] MEDS ORDERED: LORA10TA7 PO (15:31)
[2022-08-24] MEDS ORDERED: CHOL4POW4 PO (15:31)
== END 2022-08-24 15:42 | disposition home or self-care (01) ==
LOC: PREOP 05:35
PROVIDERS: ATTEND Surgery
DX: Z01.818 Encounter for other preprocedural examination (principal)

== ENCOUNTER 2022-09-06 07:57 | Day surgery (SDC) | payer MEDICARE, OTHER ==
[~2022-09-06] VITALS: Ht 170 cm; Wt 95.7 kg
[~2022-09-06 07:57] MED LIST changes: +CHOL4POW4 PO; +LORA10TA7 PO; +TRAM50TA3 PO
[2022-09-06] MEDS ORDERED: LACTATED RINGERS 1,000 ML IV STA (08:15)
[2022-09-06] MEDS ORDERED: HURRICAINE EXT TUBE (BENZOCAINE) XX PRN (08:15)
[2022-09-06 08:25] VITALS: BP 137/89
[2022-09-06] MEDS ORDERED: PROPOFOL INJECTION 50 ML IV ONE (09:00)
[2022-09-06] MEDS ORDERED: MIDAZOLAM 2 MG/2 ML (VERSED) VIAL ONE (09:00)
--- NOTE | 2022-09-06 09:27 | Discharge Inst-Simple/Standard ---
Discharge Inst-Standard Patient Instructions/Follow Up Plan of Care/Instructions/FU: 2 weeks [place]ana Activity as Tolerated: Yes Discharge Diet: Regular Diet (high fiber) CHRISTINE PRIETO DO Sep 06, 2022 09:27
[2022-09-06] MEDS ORDERED: PANT40TA2 PO (09:29)
--- NOTE | 2022-09-06 09:29 | Progress Note-Post Operative ---
Post-Operative Progess Note Surgeon (s)/Dairy Laboratory Technician (s) Surgeon CHRISTINE PRIETO DO Dairy Laboratory Technician: na Pre-Operative Diagnosis gerd, screening colonoscopy Post-Operative Diagnosis hiatal hernia, colon polyp, diverticulosis. Procedure & Operative Findings Date of Procedure 09/06/22 Procedure Performed/Findings egd c biopsies, colonoscopy c hot bx polypectomy Anesthesia Type per casing crew Estimated Blood Loss Estimated blood loss (mL): none Specimens/Packing Specimens Removed antrum, ge, colon polyp CHRISTINE PRIETO DO Sep 06, 2022 09:29
[2022-09-06 09:30] VITALS: BP 159/82
[2022-09-06 09:35] VITALS: BP 139/69
[2022-09-06 09:40] VITALS: BP 139/70
[2022-09-06 09:53] VITALS: BP 139/69
--- NOTE | 2022-09-06 11:29 | Anesthesia-General Post-Op ---
MAC Patient Condition Mental Status/LOC: Same as Preop Cardiovascular: Satisfactory Nausea/Vomiting: Absent Respiratory: Satisfactory Pain: Controlled Complications: Absent Post Op Complications Complications None Follow Up Care/Instructions Patient Instructions None needed. Anesthesiology Discharge Order Discharge Order Patient is doing well, no complaints, stable vital signs, no apparent adverse anesthesia problems. No complications reported per nursing. GIANCARLO JOLLY CRNA Sep 06, 2022 11:29
--- NOTE | 2022-09-06 12:57 | OPERATIVE REPORT ---
DATE OF SERVICE: 09/06/2022 PREOPERATIVE DIAGNOSES: Gastroesophageal reflux disease, screening colonoscopy. POSTOPERATIVE DIAGNOSES: Hiatal hernia, diverticulosis and descending colon polyp. PROCEDURES: EGD with biopsies, colonoscopy with hot biopsy. SURGEON: Christine Sawant DO ANESTHESIA: Per [employer]. ESTIMATED BLOOD LOSS: None. COMPLICATIONS: None. INDICATIONS: The patient is with GERD symptoms and needing screening colonoscopy. She understands risks and benefits of procedure and wished to proceed. DESCRIPTION OF PROCEDURE: The patient was taken to endoscopy suite, placed in left lateral recumbent position. Timeout was performed. Scope was inserted in the mouth, down the esophagus, stomach and the duodenum without difficulty. No polyps, masses or ulcerations within the duodenum. Scope was slowly retracted back into the stomach where it was further insufflated. No polyps, masses or ulcerations. Biopsy of the antrum was obtained. Scope was retroflexed noting a hiatal hernia, no other pathology. Scope was slowly retracted back to the distal esophagus, [ ] questionable reflux esophagitis. Biopsy of GE junction was obtained. Scope was then slowly retracted back until completely removed, noting no other pathology. Digital rectal exam was performed. No palpable polyps, masses or ulcerations. Scope was inserted in the rectum, advanced all the way to the cecum with minimal difficulty. Prep was adequate. Scope was slowly retracted back. No polyps, masses or ulcerations in the cecum. In the descending colon, a small polyp was present, which hot biopsy polypectomy was performed. Scope was then continued slowly retracted back. A minimal to moderate amount of diverticulosis present. No polyps, masses or ulcerations in the sigmoid. Once in the rectum, scope was retroflexed noting no other pathology. Scope was returned to its normal position, slowly withdrawn until completely removed. The patient tolerated the procedure well without complications, taken to recovery room in stable condition. RECOMMENDATIONS: Benefits outweigh the risk of repeat years, would recommend high fiber diet. We will add Protonix 40 mg daily to see if this causes any improvement. The patient will follow up in 2 weeks. Job ID: [id number] DocumentID: [id number] Dictated Date: 09/06/2022 09:32:45 [employer] Saw Operator Date: 09/06/2022 12:55:00 Dictated By: CHRISTINE SAWANT DO
== END 2022-09-06 10:20 | disposition home or self-care (01) ==
LOC: ENDO 07:57
PROVIDERS: ATTEND Surgery
DX: Z12.11 Encounter for screening for malignant neoplasm of colon (principal); D12.4 Benign neoplasm of descending colon; K57.30 Diverticulosis of large intestine without perforation or abscess without bleeding; K44.9 Diaphragmatic hernia without obstruction or gangrene; K31.89 Other diseases of stomach and duodenum; K29.50 Unspecified chronic gastritis without bleeding; K21.00 Gastro-esophageal reflux disease with esophagitis, without bleeding; Z79.899 Other long term (current) drug therapy; E66.9 Obesity, unspecified; Z68.33 Body mass index [BMI] 33.0-33.9, adult

== ENCOUNTER → 2022-12-27 | Outpatient (CLI) | payer MEDICARE, OTHER ==
[~2022-12-27] MED LIST changes: +PANT40TA2 PO
--- NOTE | 2022-12-27 09:27 | Diagnostic Imaging Report ---
INDICATION: Postmenopausal screening for osteoporosis COMPARISON: None FINDINGS: AP Spine L1-L4: [BMD (g/cm2): 1.223] [T-Score: 0.2] [Z-Score: 0.9] [BMD Previous: NA] [BMD % Change: NA] LT Hip Neck: [BMD (g/cm2): 0.840] [T-Score: -1.4] [Z-Score: -0.2] LT Hip Total: [BMD (g/cm2):1.039] [T-Score:0.3] [Z-Score: 1.2] [BMD Previous: NA] [BMD % Change: NA] RT Hip Neck: [BMD (g/cm2):0.823] [T-Score:-1.5] [Z-Score:-0.4] RT Hip Total: [BMD (g/cm2):0.977] [T-score:-0.2] [Z-Score:0.7] [BMD Previous:NA] [BMD % Change:NA] *Indicates significant change from prior examination based on 95% confidence level. World Health Organization criteria for BMD interpretation classify patients as Normal (T-score at or above -1.0), Osteopenic (T-score between -1.0 and -2.5) or Osteoporotic (T-score at or below -2.5). LIMITATIONS AND MODIFICATION: None. FRACTURE RISK (FRAX SCORE): The ten year probability of (%): Major Osteoporotic Fracture: [NA] Hip Fracture: [NA] IMPRESSION: 1. Normal bone mineral density. 2. Baseline examination. 3. See below National Osteoporosis Foundation guidelines on when to potentially initiate pharmacologic therapy. Based on the National Osteoporosis Foundation Guidelines, pharmacologic treatment should be initiated in any of the following, unless clinical conditions suggest otherwise: * Any patient with prior fragility fracture of the hip or vertebrae. A spine fracture indicates 5X risk for subsequent spine fracture and 2X risk for subsequent hip fracture. * Osteoporosis (T-score <-2.5). * Postmenopausal women and men age 50 and older with low bone mass/osteopenia (T-score between -1.0 and -2.5) by DXA and 10-year major osteoporotic fracture greater than 20% or a 10-year probability of hip fracture greater than 3%. These fracture risks are supplied above in the FRAX score, if applicable. * Clinician judgement and/or patient preferences may indicate treatment for people with 10-year fracture probabilities above or below these levels. Dictated by: Dictated on workstation # [id number]
--- NOTE | 2022-12-27 15:43 | Diagnostic Imaging Report ---
INDICATION: Routine screening. COMPARISON: 02/19/2019. TECHNIQUE: 2D and 3D bilateral screening mammography was performed with CAD. FINDINGS: Both breasts are heterogeneously dense, limiting the sensitivity of mammography. There are benign calcifications present. No mass or malignant-appearing microcalcifications are identified. The axillae are unremarkable. IMPRESSION: No mammographic features suspicious for malignancy are identified. ACR BI-RADS Category 2: Benign findings. Result letter will be mailed to the patient. Note: At least 10% of breast cancer is not imaged by mammography. Dictated by: Dictated on workstation # [id number]
== END ==
LOC: RAD 08:11
PROVIDERS: ATTEND Family Medicine
DX: Z12.31 Encounter for screening mammogram for malignant neoplasm of breast (principal); Z78.0 Asymptomatic menopausal state
CPT/HCPCS: 77063; 77067; 77080

== ENCOUNTER 2023-03-27 09:03 | Emergency (ER) | payer MEDICARE, OTHER ==
[~2023-03-27] VITALS: Ht 170 cm; Wt 95.0 kg
[2023-03-27] MEDS ORDERED: CEFEPIME INJECTION 1,000 MG in NS (IVPB) 50 ML 50 ML IV ONE (09:30)
[2023-03-27] MEDS ORDERED: LACTATED RINGERS 1,000 ML 1,000 ML IV ONE (09:30)
[2023-03-27 09:39] LABS: BASOPHILS # (AUTO) 0.1 10^3/uL (0.0-0.1); BASOPHILS % (AUTO) 1 % (0-10); EOSINOPHILS # (AUTO) 0.2 10^3/uL (0.0-0.3); EOSINOPHILS % (AUTO) 1 % (0-10); HEMATOCRIT 46 % (35-52); HEMOGLOBIN 14.9 g/dL (11.5-16.0); LYMPHOCYTES # (AUTO) 2.1 10^3/uL (1.0-4.0); LYMPHOCYTES % (AUTO) 16 % (12-44); MEAN CORPUSCULAR HEMOGLOBIN 30 pg (25-34); MEAN CORPUSCULAR HGB CONC 32 g/dL (32-36); MEAN CORPUSCULAR VOLUME 93 fL (80-99); MEAN PLATELET VOLUME 9.8 fL (9.0-12.2); MONOCYTES # (AUTO) 0.8 10^3/uL (0.0-1.0); MONOCYTES % (AUTO) 6 % (0-12); NEUTROPHILS # (AUTO) 9.8 10^3/uL (1.8-7.8); NEUTROPHILS % (AUTO) 75 % (42-75); PLATELET COUNT 335 10^3/uL (130-400)
--- NOTE | 2023-03-27 09:42 | ED Abdominal Pain ---
General Chief Complaint: Abdominal/GI Problems Stated Complaint: FEVER/LEFT SIDE ABD PAIN Nursing Triage Note: pt presents to ed via pov from home with complaints of abdominal pain and nausea since 03/19. pt reports she had one episode of v/d on monday. pt reports decreased appetite and states hr pain now is in her llq. pt also reports intermittent low grade fevers. Source of Information: Patient History of Present Illness Date Seen by Provider: Mar 27, 2023 Time Seen by Provider: 09:20 Initial Comments PT ARRIVES VIA POV FROM HOME PT STATES THAT SHE HAS BEEN SICK SINCE LAST Monday03/19/23 INITIALLY SHE HAD RUQ PAIN, THEN GENERALIZED ABDOMINAL PAIN AND NOW PAIN IS LOCALIZED TO LLQ SINCE YESTERDAY PAIN IS CONSTANT AND IS WORSE WITH ANY MOVEMENTS SHE HAD 1 EPISODE OF VOMITING ON WEDNESDAY 03/21 AND THEN HAD DIARRHEA X 1 EPISODE ON MONDAY. HER LAST BM WAS ON MONDAY SHE HAD HAD FEVER UP TO 100.6 NO URINARY SYMPTOMS AND VOIDED X 2 THIS AM DECREASED APPETITE, BUT IS DRINKING LIQUIDS WELL. LAST FOOD INTAKE WAS YESTERDAY--SCRAMBLED EGGS, AND CRACKERS AND BEEF BARLEY SOUP LAST PM SHE TOOK IBUPROFEN A COUPLE OF TIMES LAST WEEK, OTHERWISE HAS NOT TAKEN ANYTHING FOR PAIN SHE HAS NOT SOUGHT CARE UNTIL TODAY SYMPTOMS GRADUALLY GETTING WORSE PT HAS HAD PRIOR HYSTERECTOMY AND CHOLECYSTECTOMY PT DENIES PRIOR GI PROBLEMS SHE IS NOT DIABETIC, SHE HAS HIGH TRIGLYCERIDES PCP: DR. BOLANOS Allergies and Home Medications Allergies Coded Allergies: eucalyptus (Verified Allergy, Intermediate, Shortness of Breath, 10/15/21) hazelnut (Verified Allergy, Intermediate, Itching, 10/15/21) latex (Verified Allergy, Unknown, RASH, 10/15/21) Penicillins (Verified Adverse Reaction, Intermediate, 10/15/21) nickel (Verified Adverse Reaction, Intermediate, Itching, 10/15/21) carbamazepine (Verified Adverse Reaction, Unknown, 10/15/21) codeine (Verified Adverse Reaction, Unknown, 10/15/21) cyclobenzaprine (Verified Adverse Reaction, Unknown, 10/15/21) doxycycline (Verified Adverse Reaction, Unknown, 10/15/21) erythromycin base (Verified Adverse Reaction, Unknown, 10/15/21) flurbiprofen (Verified Adverse Reaction, Unknown, 10/15/21) lincomycin (Verified Adverse Reaction, Unknown, 10/15/21) phenytoin (Verified Adverse Reaction, Unknown, 10/15/21) Uncoded Allergies: BEE STINGS (Adverse Reaction, Unknown, 07/09/18) Patient Home Medication List Home Medication List Reviewed: Yes Cholestyramine (with Sugar) (Cholestyramine Packet) 4 Gram Powd.pack, 4 GM PO TIDAC, (Reported) Entered as Reported by: DELON GARCIA on 08/24/22 153 Ciprofloxacin HCl (Ciprofloxacin HCl) 500 Mg Tablet, 500 MG PO BID Prescribed by: BERTIN PERSAUD on 03/27/23 1123 Gemfibrozil (Gemfibrozil) 600 Mg Tablet, 600 MG PO BID, (Reported) Entered as Reported by: DELON GARCIA on 07/09/18 1058 Loratadine (Loratadine) 10 Mg Tablet, 10 MG PO DAILY, (Reported) Entered as Reported by: DELON GARCIA on 08/24/22 153 Metronidazole (Metronidazole) 500 Mg Tablet, 500 MG PO QID Prescribed by: BERTIN PERSAUD on 03/27/23 1123 Ondansetron (Ondansetron Odt) 4 Mg Tab.rapdis, 4 MG PO Q4H Prescribed by: BERTIN PERSAUD on 03/27/23 112 Pantoprazole Sodium (Protonix) 40 Mg Tablet.dr, 40 MG PO DAILY Prescribed by: CHRISTINE PRIETO on 09/06/22 0929 Sertraline HCl (Sertraline HCl) 25 Mg Tablet, 25 MG PO DAILY, (Reported) Entered as Reported by: DELON GARCIA on 07/09/18 1058 Tramadol HCl (Tramadol HCl) 50 Mg Tablet, 50 MG PO TID PRN for PAIN, (Reported) Entered as Reported by: DELON GARCIA on 08/24/22 1531 Tramadol HCl (Tramadol HCl) 50 Mg Tablet, 50 MG PO Q4H Prescribed by: BERTIN PERSAUD on 03/27/23 1124 Review of Systems Review of Systems Constitutional: see HPI, fever EENTM: No Symptoms Reported Respiratory: No Symptoms Reported Cardiovascular: No Symptoms Reported Gastrointestinal: See HPI, Abdominal Pain, Diarrhea, Nausea, Poor Appetite, Vomiting Genitourinary: No Symptoms Reported Musculoskeletal: no symptoms reported Skin: no symptoms reported Psychiatric/Neurological: No Symptoms Reported Endocrine: No Symptoms Reported Hematologic/Lymphatic: No Symptoms Reported Past Nwiptgr-Grcfqg-Hwagzm Hx Patient Social History Tobacco Use?: No Substance use?: No Alcohol Use?: No Pt feels they are or have been: No Immunizations Up To Date First/Initial COVID19 Vaccinat: yes Second COVID19 Vaccination Fabio: yes Third COVID19 Vaccination Date: yes Seasonal Allergies Seasonal Allergies: Yes Past Medical History Surgery/Hospitalization HX: pmh: seasonal allergies, depression, gerd sx: partial hyst, t/a, r knee replacement, r total reverse shoulder, cataract, gallbladder, COLONOSCOPY/POLYPECTOMY Surgeries: Yes (RIGHT SHOULDER SURGERY X 2, DETACHED RETINA, L TKR, DXLS;CATARACTS) Adenoidectomy, Eye Surgery, Gallbladder, Hysterectomy, Joint Replacement, Orthopedic, Tonsillectomy Respiratory: No Cardiac: Yes (HIGH TRIGLYCERIDES) High Cholesterol 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 0.0oz. 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, no motor/sensory deficits, alert, normal mood/affect, oriented x 3 Skin: normal color, warm/dry; No rash Focused Exam Lactate Level 03/27/23 09:27: Lactic Acid Level 0.98 Lactic Acid Level Laboratory Tests Test 03/27/23 09:27 Lactic Acid Level 0.98 MMOL/L (0.50-2.00) Progress/Results/Core Measures Results/Orders Lab Results Laboratory Tests Test 03/27/23 09:22 03/27/23 09:27 03/27/23 10:56 Range/Units Influenza Type A (RT-PCR) Not Detected Not Detecte Influenza Type B (RT-PCR) Not Detected Not Detecte SARS-CoV-2 RNA (RT-PCR) Not Detected Not Detecte White Blood Count 13.0 H 4.3-11.0 10^3/uL Red Blood Count 4.96 3.80-5.11 10^6/uL Hemoglobin 14.9 11.5-16.0 g/dL Hematocrit 46 35-52 % Mean Corpuscular Volume 93 80-99 fL Mean Corpuscular Hemoglobin 30 25-34 pg Mean Corpuscular Hemoglobin Concent 32 32-36 g/dL Red Cell Distribution Width 13.5 10.0-14.5 % Platelet Count 335 130-400 10^3/uL Mean Platelet Volume 9.8 9.0-12.2 fL Immature Granulocyte % (Auto) 1 % Neutrophils (%) (Auto) 75 42-75 % Lymphocytes (%) (Auto) 16 12-44 % Monocytes (%) (Auto) 6 0-12 % Eosinophils (%) (Auto) 1 0-10 % Basophils (%) (Auto) 1 0-10 % Neutrophils # (Auto) 9.8 H 1.8-7.8 10^3/uL Lymphocytes # (Auto) 2.1 1.0-4.0 10^3/uL Monocytes # (Auto) 0.8 0.0-1.0 10^3/uL Eosinophils # (Auto) 0.2 0.0-0.3 10^3/uL Basophils # (Auto) 0.1 0.0-0.1 10^3/uL Immature Granulocyte # (Auto) 0.1 0.0-0.1 10^3/uL Prothrombin Time 14.0 12.2-14.7 SEC INR Comment 1.1 0.8-1.4 Activated Partial Thromboplast Time 48 H 24-35 SEC Sodium Level 141 135-145 MMOL/L Potassium Level 3.5 L 3.6-5.0 MMOL/L Chloride Level 109 H 98-107 MMOL/L Carbon Dioxide Level 21 21-32 MMOL/L Anion Gap 11 5-14 MMOL/L Blood Urea Nitrogen 16 7-18 MG/DL Creatinine 0.84 0.60-1.30 MG/DL Estimat Glomerular Filtration Rate 73 BUN/Creatinine Ratio 19 Glucose Level 110 H 70-105 MG/DL Lactic Acid Level 0.98 0.50-2.00 MMOL/L Calcium Level 9.6 8.5-10.1 MG/DL Corrected Calcium 9.2 8.5-10.1 MG/DL Magnesium Level 2.2 1.6-2.4 MG/DL Total Bilirubin 1.0 0.1-1.0 MG/DL Aspartate Amino Transf (AST/SGOT) 22 5-34 U/L Alanine Aminotransferase (ALT/SGPT) 21 0-55 U/L Alkaline Phosphatase 109 40-136 U/L Total Protein 7.7 6.4-8.2 GM/DL Albumin 4.5 3.2-4.5 GM/DL Amylase Level 32 25-125 U/L Lipase 14 8-78 U/L Urine Color YELLOW Urine Clarity CLEAR Urine pH 6.0 5-9 Urine Specific [place] <=1.005 1.016-1.022 Urine Protein NEGATIVE NEGATIVE Urine Glucose (UA) NEGATIVE NEGATIVE Urine Ketones NEGATIVE NEGATIVE Urine Nitrite NEGATIVE NEGATIVE Urine Bilirubin NEGATIVE NEGATIVE Urine Urobilinogen 1.0 < = 1.0 MG/DL Urine Leukocyte Esterase 3+ H NEGATIVE Urine RBC (Auto) NEGATIVE NEGATIVE Urine RBC NONE /HPF Urine WBC 10-25 H /HPF Urine Squamous Epithelial Cells >50 H /HPF Urine Crystals NONE /LPF Urine Bacteria MODERATE H /HPF Urine Casts NONE /LPF Urine Mucus NEGATIVE /LPF Urine Culture Indicated NO My Orders Orders - BERTIN PERSAUD DO Ed Iv/Invasive Line Start (03/27/23 09:19) Monitor-Rhythm Ecg Trace Only (03/27/23 09:19) Amylase (03/27/23:19) Lipase (03/27/23:19) Magnesium (03/27/23:19) Covid 19 Inhouse Test (03/27/23 09:19) Cbc With Automated Diff (03/27/23:19) Comprehensive Metabolic Panel (03/27/23:19) Blood Culture (03/27/23 09:19) Sputum Culture (03/27/23 09:19) Urinalysis (03/27/23 09:19) Urine Culture (03/27/23 09:19) Protime With Inr (03/27/23 09:19) Partial Thromboplastin Time (03/27/23 09:19) Chest 1 View, Ap/Pa Only (03/27/23 09:19) Ed Iv/Invasive Line Start (03/27/23 09:19) Ed Iv/Invasive Line Start (03/27/23 09:19) Vital Signs Adult Sepsis Patie Q15M (03/27/23 09:19) O2 (03/27/23 09:19) Remove Rings In Anticipation O (03/27/23 09:19) Lactic Acid Analyzer (03/27/23 09:19) Influenza A And B By Pcr (03/27/23 09:19) Ed Iv/Invasive Line Start (03/27/23 09:19) Lactated Ringers 1,000 Ml (Lactated Ring (03/27/23 09:30) Cefepime Injection (Cefepime Injection) (03/27/23 09:30) Ondansetron Injection (Ondansetron Inj (03/27/23 10:00) Ed Iv/Invasive Line Start (03/27/23 10:16) Ns Iv 1000 Ml (Ns Iv 1000 Ml) (03/27/23 10:30) Ct Abdomen/Pelvis W (03/27/23 10:16) Ketorolac Injection (Ketorolac Injection (03/27/23 10:30) Iohexol Injection (Omnipaque 350 Mg/Ml 1 (03/27/23 10:30) Received Contrast (Hold Metformin- Contr (03/27/23 10:30) Ns (Ivpb) 100 Ml (Sodium Chloride 0.9% 1 (03/27/23 10:30) Medications Given in ED Current Medications Medications Dose Ordered Sig/Jennifer Route Start Time Stop Time Status Last Admin Dose Admin Cefepime HCl 1000 mg/Sodium Chloride 50 ml @ 100 mls/hr ONCE ONCE IV 03/27/23 09:30 03/27/23 09:59 DC 03/27/23 10:14 100 MLS/HR Iohexol 100 ml ONCE ONCE IV 03/27/23 10:30 03/27/23 10:31 DC 03/27/23 10:46 80 ML Ketorolac Tromethamine 30 mg ONCE ONCE IVP 03/27/23 10:30 03/27/23 10:31 DC 03/27/23 10:53 30 MG Lactated Ringer's 1,000 ml @ 0 mls/hr Q0M ONCE IV 03/27/23 09:30 03/27/23 09:31 DC 03/27/23 09:32 0 MLS/HR Ondansetron HCl 4 mg ONCE ONCE IVP 03/27/23 10:00 03/27/23 10:01 DC 03/27/23 10:09 4 MG Sodium Chloride 100 ml ONCE ONCE IV 03/27/23 10:30 03/27/23 10:31 DC 03/27/23 10:46 80 ML Vital Signs/I&O 03/27/23 09:15 Temp 37.1 Pulse 95 Resp 16 B/P (MAP) 45/80 (68) Pulse Ox 96 Blood Pressure Mean: 68 Progress Progress Note : Progress Note VITALS ON ARRIVAL: TEMP 37.1=98.8, HR 95, RR 16, BP 145/80, O2 SAT 96% ON ROOM AIR GIVEN: -IV FLUIDS -CEFEPIME -ZOFRAN -TORADOL LABS: -CBC WITH WBC 13.0, OTHERWISE NORMAL -CMP NORMAL -MG 2.2 -AMYLASE/LIPASE NORMAL -LACTIC ACID 0.93 -PT/PTT/INR NORMAL, EXCEPT PTT 48 -UA WITH 3+ LEUKOCYTES, 10-25 WBC, MODERATE BACTERIA -COVID/FLU NEGATIVE URINE CULTURE PENDING. CT SHOWS DIVERTICULITIS WITHOUT PERFORATION OR ABSCESS VITALS STABLE, AFEBRILE SYMPTOMS IMPROVED NO DETERIORATION IN PT'S CONDITION DURING ER STAY DISCUSSED TEST RESULTS, ANTICIPATED COURSE,SYMPTOMATIC TREATMENT, DIET, MEDICATIONS, NEED FOR FOLLOW UP AND RETURN PRECAUTIONS REVIEWED PRIOR RECORDS INCLUDING ER VISITS, ADMITS/H&P'S/CONSULTS/DISCHARGE SUMMARIES, TESTS/PROCEDURES Diagnostic Imaging Comments CXR--PER RADIOLOGIST REPORT AT 1004 FINDINGS: The heart size is normal. Lungs are clear. There is no pleural effusion or pneumothorax. Mediastinum is unremarkable. There are postsurgical changes of a right shoulder reverse arthroplasty. IMPRESSION: No acute cardiopulmonary abnormality. CT ABDOMEN/PELVIS--PER RADIOLOGIST REPORT AT 1109 Comparison is made with prior CT from 04/11/2022. Lung bases are clear. There is generalized low attenuation throughout the liver consistent with hepatic steatosis. Gallbladder is surgically absent. No biliary duct dilatation is seen. Pancreas and spleen are unremarkable. No adrenal mass is identified. No definite renal calculi or hydronephrosis is detected. Aorta is calcified but nonaneurysmal. There is moderate stool in the colon. There is inflammatory stranding identified in the left lower quadrant adjacent to the descending colon. There is extensive diverticulosis of the sigmoid colon but no significant inflammation adjacent to the sigmoid is noted. Inflammation adjacent to the descending colon may be owing to colitis or diverticulitis. There is some minimal adjacent free fluid but no well-formed fluid collection, microperforation or bowel obstruction is detected. Bladder is unremarkable. Uterus appears to be surgically absent. IMPRESSION: 1. Hepatic steatosis. 2. Inflammatory stranding in the left lower quadrant adjacent to the descending colon consistent with nonspecific colitis/diverticulitis. No definite microperforation, abscess formation or bowel obstruction is identified. There is also extensive diverticulosis of the sigmoid colon. Reviewed: Reviewed by Oh Departure Communication (Admissions) 1119--SPOKE WITH DR. PRIETO, HE AGREES WITH SENDING PT HOME WITH ORAL ANTIBIOTICS, AND HE WILL SEE PT IN THE OFFICE IN 1-2 WEEKS Impression Primary Impression: Diverticulitis of intestine Additional Impression: UTI (urinary tract infection) Disposition: 01 HOME, SELF-CARE Condition: Stable Departure-Patient Inst. Decision time for Depature: 11:20 Referrals: ELIZA BOLANOS MD (PCP/Family) Primary Care Physician CHRISTINE PRIETO DO Patient Instructions: Urinary Tract Infection, Adult ED, Diverticulitis (DC) Add. Discharge Instructions: CLEAR LIQUIDS FOR THE NEXT 2-3 DAYS--WATER, BROTH, JELLO, GATORADE AFTER THAT, IF YOU ARE FEELING BETTER, ADD BRATS DIET TO CLEAR LIQUIDS--BANANAS, RICE, APPLESAUCE, TOAST, SALTINES FOLLOW UP WITH DR. PRIETO IN 1-2 WEEKS FOR FURTHER CARE--CALL TODAY TO Jefry CORDON AN APPOINTMENT RETURN TO ER IF SYMPTOMS WORSEN All discharge instructions reviewed with patient and/or family. Voiced understanding. Scripts Tramadol HCl (Tramadol HCl) 50 Mg Tablet 50 MG PO Q4H for Pain, #20 TAB Prov: BERTIN PERSAUD DO 03/27/23 Ondansetron (Ondansetron Odt) 4 Mg Tab.rapdis 4 MG PO Q4H for Nausea/Vomiting, #10 TAB Prov: BERTIN PERSAUD DO 03/27/23 Metronidazole (Metronidazole) 500 Mg Tablet 500 MG PO QID, #40 TAB Prov: BERTIN PERSAUD DO 03/27/23 Ciprofloxacin HCl (Ciprofloxacin HCl) 500 Mg Tablet 500 MG PO BID, #20 TAB Prov: BERTIN PERSAUD DO 03/27/23 BERTIN PERSAUD DO Mar 27, 2023 09:42
[2023-03-27] MEDS ORDERED: ONDANSETRON INJECTION 4 MG/2 ML (SDV) IVP ONE (10:00)
--- NOTE | 2023-03-27 10:00 | Diagnostic Imaging Report ---
INDICATION: Fever. FINDINGS: The heart size is normal. Lungs are clear. There is no pleural effusion or pneumothorax. Mediastinum is unremarkable. There are postsurgical changes of a right shoulder reverse arthroplasty. IMPRESSION: No acute cardiopulmonary abnormality. Dictated by: Dictated on workstation # [id number]
[2023-03-27 10:01] LABS: ALBUMIN 4.5 GM/DL (3.2-4.5); CALCIUM 9.6 MG/DL (8.5-10.1); CREATININE SERUM 0.84 MG/DL (0.60-1.30); MAGNESIUM 2.2 MG/DL (1.6-2.4); POTASSIUM 3.5 MMOL/L (3.6-5.0); TOTAL PROTEIN 7.7 GM/DL (6.4-8.2)
[2023-03-27 10:02] LABS: INR 1.1 (0.8-1.4)
[2023-03-27] MEDS ORDERED: IOHEXOL 350 MG/ML 100 ML (OMNIPAQUE 350) VIAL IV ONE (10:30)
[2023-03-27] MEDS ORDERED: NS IV 1000 ML 1,000 ML IV SCH (10:30)
[2023-03-27] MEDS ORDERED: KETOROLAC INJ 30 MG/ML VIAL IVP ONE (10:30)
[2023-03-27] MEDS ORDERED: HOLD METFORMIN - RECEIVED CONTRAST 20 ML VIAL IV SCH (10:30)
[2023-03-27] MEDS ORDERED: NS 100 ML (IVPB) BAG IV ONE (10:30)
--- NOTE | 2023-03-27 11:01 | Diagnostic Imaging Report ---
PROCEDURE: CT abdomen and pelvis with contrast. TECHNIQUE: Multiple contiguous axial images were obtained through the abdomen and pelvis after administration of intravenous contrast. Auto Exposure Controls were utilized during the CT exam to meet ALARA standards for radiation dose reduction. All CT scans use one or more of the following dose optimizing techniques: automated exposure control, MA and/or KvP adjustment based on patient size and exam type or iterative reconstruction. INDICATION: Left lower quadrant pain for one week. Comparison is made with prior CT from 04/11/2022. Lung bases are clear. There is generalized low attenuation throughout the liver consistent with hepatic steatosis. Gallbladder is surgically absent. No biliary duct dilatation is seen. Pancreas and spleen are unremarkable. No adrenal mass is identified. No definite renal calculi or hydronephrosis is detected. Aorta is calcified but nonaneurysmal. There is moderate stool in the colon. There is inflammatory stranding identified in the left lower quadrant adjacent to the descending colon. There is extensive diverticulosis of the sigmoid colon but no significant inflammation adjacent to the sigmoid is noted. Inflammation adjacent to the descending colon may be owing to colitis or diverticulitis. There is some minimal adjacent free fluid but no well-formed fluid collection, microperforation or bowel obstruction is detected. Bladder is unremarkable. Uterus appears to be surgically absent. IMPRESSION: 1. Hepatic steatosis. 2. Inflammatory stranding in the left lower quadrant adjacent to the descending colon consistent with nonspecific colitis/diverticulitis. No definite microperforation, abscess formation or bowel obstruction is identified. There is also extensive diverticulosis of the sigmoid colon. Dictated by: Dictated on workstation # [id number]
[2023-03-27 11:13] LABS: BACTERIA,URINE MODERATE /HPF; BILIRUBIN,URINE NEGATIVE (NEGATIVE); CLARITY,URINE CLEAR; COLOR,URINE YELLOW; GLUCOSE, URINE (UA) NEGATIVE (NEGATIVE); KETONES,URINE NEGATIVE (NEGATIVE); LEUKOCYTE ESTERASE ,URINE 3+ (NEGATIVE); NITRITE,URINE NEGATIVE (NEGATIVE); PROTEIN,URINE NEGATIVE (NEGATIVE); SQUAMOUS EPITHELIAL CELL,UR >50 /HPF
[2023-03-27] MEDS ORDERED: CIPR500T5 PO (11:23)
[2023-03-27] MEDS ORDERED: TRAM50TA3 PO (11:23)
[2023-03-27] MEDS ORDERED: METR-145 PO (11:23)
[2023-03-27] MEDS ORDERED: ONDA4TAB11 PO (11:23)
[2023-03-27 11:57] VITALS: BP 118/74
== END 2023-03-27 11:57 | disposition home or self-care (01) ==
LOC: EDUNIT# 09:03 → ER 09:06
DX: K57.32 Diverticulitis of large intestine without perforation or abscess without bleeding (principal); N39.0 Urinary tract infection, site not specified; E66.9 Obesity, unspecified; Z68.32 Body mass index [BMI] 32.0-32.9, adult; Z91.040 Latex allergy status; Z90.49 Acquired absence of other specified parts of digestive tract; Z20.822 Contact with and (suspected) exposure to COVID-19; Z88.0 Allergy status to penicillin; Z88.1 Allergy status to other antibiotic agents
CPT/HCPCS: 36415; 71045; 74177; 80053; 81000; 82150; 83605; 83690; 83735; 85025; 85610; 85730; 87040; 87088; 87636; 93041